=== PATIENT | male | born 1955 | race Caucasian/White ===

== ENCOUNTER 2022-03-28 13:59 | Inpatient (IN) | payer OTHER, BC, MEDICARE, SELFPAY ==
[2022-03-28] VITALS (11 sets, daily range): BP systolic 96–138; BP diastolic 54–85; PULSE 56–94; RESP 16–18; TEMP 36.2–37; O2SAT 95–100; BMI 37.8
--- NOTE | 2022-03-28 | HIP_PTH ---
PATIENT: TIFFANY HERZOG LOC: MS3 U#:[id number] AGE/SX: 66/M ROOM: MN311 RE03/28/[address]: Dr. Maverick Dash MD : 1955 BED: 1 DIS: 04/01/2022 SPEC #: [id number] RECD: 03/28/22 14:49 STATUS: SHELBY RAMIREZ #: [id number] PEE: 03/28/22 00:[address]: Maverick Dash DEPT: SURGICAL PATHOLOGY RECD BY: Dariela Painting ENTERED: 03/29/22 16:45 SP TYPE: TOTAL HIP OTHR DR: MD Dr. Shivani Chan MD Dr. Robert Leininger, MD Tissues: Hip, NOS Procedures: Surgery Specimen Level IV HEADER OPERATION: ERAS, total anterior hip poly exchange I & D PRE-OP DIAGNOSIS: Left anterior hip wound dehiscence/draining sinus TISSUE SUBMITTED: Sinus tract left hip MICROSCOPIC DIAGNOSIS Skin and soft tissue of left anterior hip, excision: Ulceration with associated acute and chronic inflammation, microabscess formation, fat necrosis and suture material. HADLEY:michael 04/02/2022 MICROSCOPIC DESCRIPTION Slides are reviewed. GROSS DESCRIPTION Received in fixative is one container labeled with the patient's name and designated sinus tract left hip. The specimen consists of skin and soft tissue measuring 5.5 x 4.5 x 2.2 cm. The specimen is sectioned and submitted entirely in two cassettes. / DAYNE:michael 03/30/2022 TC:2 CPT: 72748
[2022-03-28] MEDS: Lactated Ringers 1,000 ML 999 ML IV (10:30)
[2022-03-28] MEDS: Gabapentin 600 MG Tablet PO (10:55)
[2022-03-28] MEDS: Acetaminophen 500 MG Tablet 1000 MG PO ×2 (10:55→22:12)
[2022-03-28 10:59] LABS: Magnesium 2.1 mg/dL (1.6-2.6); Thyroid Stim Hormone (TSH) 2.22 uIU/mL (0.358-3.74)
[2022-03-28 11:16] LABS: Bedside Glucose 115 mg/dL (74-106)
[2022-03-28] MEDS: Lactated Ringers 1,000 ML 75 ML IV ×2 (11:31→12:30)
[2022-03-28] MEDS: dexAMETHasone 10 MG/ML Vial IV (12:10)
[2022-03-28] MEDS: Cefazolin 2 GM in 0.9% Normal Saline 100 ML IV (12:10)
[2022-03-28] MEDS: TXA 1000mg in NS100 100ml (IVPB at Incision) 660 MG IV (12:15)
[2022-03-28] MEDS: TXA 1000mg in NS100 100ml (IVPB at Closure) 660 MG IV (13:43)
--- NOTE | 2022-03-28 14:01 | RAD_ITS ---
STUDY: X-RAY - PELVIS AND LEFT HIP REASON FOR EXAM: Female, 66 years old. Post Op -- AP both hips on single gera/lateral of op hip PACU TECHNIQUE: views of the pelvis and hip. COMPARISON: None. FINDINGS: Status post surgical resection of the left femoral head and neck. The proximal one third femoral prosthetic component is well placed within the intramedullary cavity as well as the acetabular cup. Both prosthetic components demonstrate good bony contact and alignment. Expected postoperative changes of the overlying soft tissues including gas and swelling. No occult fractures present. The visualized aspects of the right hip are normal. RAD/Hip Min 2 Views (Portable) IMPRESSION: 1. Status post total left hip arthroplasty Electronically Signed: Zana Bourne MD at 15:47 EST ,
--- NOTE | 2022-03-28 14:04 | PCM.OPRPT ---
Report of Operation Date of Procedure: 03/28/22 Pre-Operative Diagnosis: Left anterior hip wound dehiscence/draining sinus Post-Operative Diagnosis: Left anterior hip wound dehiscence/draining sinus Surgery/Procedure Performed:: Left hip anterior wound irrigation debridement with excision of sinus tract 10 mm x 3 mm. Total hip exploration with revision polyethylene exchange and head exchange. Description of Surgical Findings:: There was no direct communication with the underlying joint. There was a small area of fluid with in the subcutaneous area superficial to the fascia. Surgeon: Maverick Dash construction worker: Elaine Harden Type of Anesthesia: Spinal Anesthesiologist: Bi Reyes Special Medications: Ancef and vancomycin Specimen's removed: Superficial specimen was sent. 3 deep specimens were sent. Estimated Blood Loss (mL): 200 Fluids Replaced: 1400 mL crystalloid Description of Procedure: 66-year-old male who showed up to my office at 6-week postop visit. 48 hours of a small amount of drainage from a small area on the incision where his scab had fallen off. The wound did have purulent drainage. This was expressed skin was cleaned and we did send cultures to [facility]. Initial Gram stains showed gram-positive cocci. Based on his clinical history of increasing swelling and redness in this area I recommended irrigation debridement with exploration of the joint and exchange of head and liner. Risk and benefits of the procedure were discussed the patient including but onto blood loss, DVTs, PEs, nervous damage, infection, the risk of anesthesia include loss of life. I was able to speak with the patient's at bedside prior to the procedure and demonstrated this as well. I do explained it could be superficial infection related to the leg wound dehiscence or topical wound issues however based on his purulent drainage I recommended deep exploration as part of the procedure. Patient demonstrated understanding as did his and was able to sign informed consent. On day of the procedure patient was seen in the preoperative area. Left hip was marked. At this point he had had no more purulent drainage and doxycycline had begun in the office. He was having some occasional serous drainage. He was brought back to the operating room where he was placed in supine position. Anesthesia assumed control of the C-spine and airway and remained to control throughout the remainder the procedure. Spinal anesthesia was was administered patient was again placed in the supine position and all bony prominences were identified well-padded. Sacral bump was placed. Incision was marked out. At this time the left lower extremity was prepped in a sterile fashion while surgeon scrubbed. Upon reentering the room the left lower extremity was draped in a standard orthopedic fashion. Timeout was called over and agreed upon the side, the site, the procedure to be performed, patient's identity and antibiotics given. There were 2 separate sepsis arranged 1 for the superficial debridement 1 for the deep exploration. After the timeout the incision was taken down through skin and we did ellipse the 10 mm x 3 mm sinus tract. This could be tracked down to a deep space that had some serous fluid. No gross purulence was noted however there was some tissue that looked purulent. This tissue was collected and sent for tissue cultures. We debrided this tissue. We were not able to find any deep tracking in the fascia. We carefully cleaned out this area and after was cleaned out we used 3 L of saline under low-pressure lavage to irrigate out the area once this area was appropriately on the gloves were removed and everyone regowned and gloved. We did redraped the area covering up the previous drapes. New accessory instruments were opened. At this time we carefully identified the fascia. We found the T FL and retracted it laterally dissecting underneath the fascia. We carefully dissected down to the joint. Once we are down to the joint 3 separate specimens were sent to microbiology. Once we have her get to the joint we carefully get her synovectomy. We are able to dislocate the hip. Once he dislocated hip we dissociated femoral head from the trunnion. The femur was then retracted out of the way and we were able to remove the acetabular liner. Acetabular liner was removed and one of the specimens was taken from memory behind the acetabular liner. Wound was millie irrigated out with normal saline under low-pressure lavage with 6 L of total normal saline. Once this was done the hip would been stable. We opened up a new liner. While we are opening the liner lavaged out the wound with Betadine and then carefully irrigated out once more. Liner was engaged and impacted into place. Hemostat was used to verify the liner was appropriate locking to place. Femoral trunnion was again exposed and the titanium sleeve and ceramic femoral head were impacted into place. Hip was reduced. Stability was checked. Leg lengths were reaffirmed. At this time the wound was then lavaged with a 3-minute dilute Betadine lavage followed by 1 minute chlorhexidine lavage followed by copious amounts of normal saline. Wound was in explored and hemostasis was obtained. We carefully closed the wound in a layered del valle fashion. #1 Vicryl was used to close the fascia. #1 Vicryl was used to close the deep fatty layer in interrupted fashion. 2-0 Vicryl was used to close the subcuticular layer and 3-0 nylon was used to close skin finally. Adaptic was placed on the skin and an incisional wound VAC was placed in the operating room. Patient was awakened by anesthesia and transferred the PACU for recovery. Postop plan: Patient will be weightbearing as tolerated, activity as tolerated. We will maintain the wound VAC for 1 week postoperatively. Patient will be started on cefazolin and vancomycin postoperatively and infectious disease will be consulted for further antibiotic recommendations. Aspirin 81 mg twice daily for DVT prophylaxis. During the course of the procedure the physician hvac commercial salesperson (PE) played a vital role. Their intimate knowledge of my steps in the procedure aided in safe and expedient completion of the procedure. The PE played a vital rolls in positioning particularly in obtaining the appropriate positioning of the sacral bump. The PE was also vital in the retraction of soft tissues during the exposure and especially the femoral work as this is a vital part of the procedure to prevent complications and fractures. The PE was also vital and protecting soft tissues during times of bony cuts and reaming. He also played a vital role in closure with my direct supervision. The PE was also important during reduction and dislocation of the joint and trials intraoperatively. Complications No intraoperative complications Admit VTE Documentation VTE Present on Admission: No VTE Mechan Device Prophylaxis: SCD's and Thigh High DOROTEO Hose VTE Pharm Prophylaxis ordered?: Yes
[2022-03-28] MEDS: Morphine 2 MG/ML Syringe IV (15:41)
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
[2022-03-28 17:38] LABS: Anion Gap 5 (5-15); BUN 26 mg/dL (7-18); BUN/Creat Ratio 19.1 RATIO (10-20); Calcium,Total 9.4 mg/dL (8.5-10.1); Chloride 102 mmol/L (98-107); Creatinine, Serum 1.36 mg/dL (0.70-1.30); EST Glomerular Filtration Rate 56 mL/min (>60); Est Glom Filt Rate - Afr Amer 67 mL/min (>60); Glucose 194 mg/dL (74-106); Potassium 4.5 mmol/L (3.5-5.1); Sodium Level 135 mmol/L (136-145)
[2022-03-28] MEDS: Ensure Surgery 237 ML LIQUID PO (18:36)
--- NOTE | 2022-03-28 19:07 | PN.HOSP_ITS ---
Subjective Subjective Patient was seen and examined today at the request of orthopedic surgery, he underwent a polyexchange of his left hip due to an infection which is believed to be from staff, patient states that this weekend he noticed swelling and discomfort in the left hip-patient states he had surgery several weeks ago for hip replacement-he was seen for a postop checkup by his orthopedic surgeon on Saturday of this week, it was noted that he had purulent drainage from his incision area over his left hip, this drainage grew out gram-positive cocci believed to be staph. Patient underwent surgery today for a left hip anterior wound irrigation debridement with excision of the sinus track and a total hip exploration with revision polyethylene exchange and head exchange. Patient's medical problems include hypothyroidism due to Meghna's thyroiditis, patient also has an elevated glucose on his last lab work of 194, creatinine was elevated at 1.36 and BUN was 26. Patient is on no medications for type 2 diabetes. It appears that the patient had an appointment with Mauri Barcenas in November of this year, there was a note about an A1c being ordered on the patient but there is no A1c in the system currently. I will order hemoglobin A1c in the patient Objective Data Objective Data Vital Signs: Vital Signs Temp Pulse Resp BP Pulse Ox O2 Del Method O2 Flow Rate 98.6 F 76 18 132/80 H 95 Room Air 4 03/28/22 17:33 03/28/22 17:33 03/28/22 17:33 03/28/22 17:33 03/28/22 17:33 03/28/22 17:33 03/28/22 17:00 Oxygen Flow Rate (L/min) 4 Oxygen Delivery Method Room Air Weight: 141 kg Body Mass Index (BMI) 37.8 Intake & Output: Intake and Output for Last 24 Hours 03/26/22 03/27/22 03/28/22 23:59 23:59 23:59 Intake Total 2972 / 2972 Balance 2972 / 2972 Lab / Micro Data Result Diagrams: 03/28/22 16:34 Labs: Laboratory Results - last 24 hr 03/28/22 10:18: Magnesium 2.1, TSH 2.22 03/28/22 10:41: POC Glucose 115 H 03/28/22 16:34: Sodium 135 L, Potassium 4.5, Chloride 102, Carbon Dioxide 28.0, Anion Gap 5, BUN 26 H, Creatinine 1.36 H, Estim Creat Clear Calc 65.60, Est GFR (MDRD) Af Amer 67, Est GFR (MDRD) Non-Af 56 L, BUN/Creatinine Ratio 19.1, Glucose 194 H, Calcium 9.4 Micro: Microbiology 03/28/22 13:08 Tissue - Hip Gram Stain - Final 03/28/22 13:19 Tissue - Hip Gram Stain - Final 03/28/22 13:13 Tissue - Hip Gram Stain - Final 03/28/22 13:10 Tissue - Hip Gram Stain - Final Radiography Diagnostic Testing: Radiology Impression Hip X-Ray 03/28/22 14:01 IMPRESSION: 1. Status post total left hip arthroplasty Electronically Signed: Zana Bourne MD at 15:47 EST Reading Location ID and State: [facility] / [place] , Service support , Physical Exam Const alert, oriented x3, no apparent distress and healthy appearing General Appearance: cooperative, well kempt and well developed Orientation / Consciousness: awake, oriented to person, oriented to place and oriented to time HEENT normocephalic, head/scalp atraumatic and moist oral mucous membranes Eyes PERRL, EOMs intact bilaterally and conjunctivae normal Neck supple, no JVD, thyroid normal and no carotid bruits General: trachea midline Resp normal respiratory effort, no retractions, no use of accessory muscles and clear to auscultation bilaterally Auscultation: Negative for rales, rhonchi or wheezes Cardio regular rate, regular rhythm, S1 normal heart sound, S2 normal heart sound, no murmurs, no rub and no gallops GI normal to inspection, nondistended, normoactive bowel sounds, soft to palpation, non-tender and non-distended Extremity no clubbing, cyanosis or edema Neuro oriented x3, CN's II-XII intact bilaterally, moves all extremities, no focal motor deficits and no sensory deficits noted Sensorium / Orientation: awake and alert Speech: speech normal Psych affect normal Assessment & Plan Assessment/Plan (1) 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 Hypothyroidism-patient will remain on Synthroid #2 elevated blood glucose-fingerstick blood sugars will be checked AC nightly, sliding scale insulin will be written #3 left anterior hip wound with dehiscence and draining sinus-postop day 0 left hip anterior wound irrigation debridement with excision of sinus tract and total hip exploration with revision polyethylene exchange and head exchange Charges/Coding Visit Charges Inpatient E&M: 60451 Subs Hosp L2
[2022-03-28] MEDS: Cefazolin 1 GM/50 ML BAG IV (19:49)
--- NOTE | 2022-03-28 19:59 | NURSING ---
pt was in room dropped vac via on floor by mistake. machine alarming, tried placing more drap on dressing to see if it would clear the alarm didnt work. when squeeze together would stop alarm. a rattle was heard. a new vac via was brought up by BRANDEN. machine was replaced. existing dressing and tubing still intact. no alarm heard. charge sticker for vac via given to BRANDEN Vasquez RN
--- NOTE | 2022-03-28 20:12 | PCM.RX.CS ---
Consult Pharmacy has been consulted to manage selected antiobiotic: Vancomycin Type of Consult: New start Suspected Infection: Skin/Soft tissue Prior Doses of Antibiotics Received/Current Regimen: Received 2gm iv x 1 preop 03.28.22. Labs: Sodium 135 mmol/L (136-145) L 03/28/22 16:34 Potassium 4.5 mmol/L (3.5-5.1) 03/28/22 16:34 Chloride 102 mmol/L (98-107) 03/28/22 16:34 Carbon Dioxide 28.0 mmol/L (21.0-32.0) 03/28/22 16:34 Anion Gap 5 (5-15) 03/28/22 16:34 BUN 26 mg/dL (7-18) H 03/28/22 16:34 Creatinine 1.36 mg/dL (0.70-1.30) H 03/28/22 16:34 Est GFR (MDRD) Af Amer 67 mL/min (>60) 03/28/22 16:34 Est GFR (MDRD) Non-Af 56 mL/min (>60) L 03/28/22 16:34 BUN/Creatinine Ratio 19.1 RATIO (10-20) 03/28/22 16:34 Glucose 194 mg/dL (74-106) H 03/28/22 16:34 Microbiology: Microbiology 03/28/22 13:08 Tissue - Hip Gram Stain - Final 03/28/22 13:19 Tissue - Hip Gram Stain - Final 03/28/22 13:13 Tissue - Hip Gram Stain - Final 03/28/22 13:10 Tissue - Hip Gram Stain - Final Weight used for dosin kg Estimated Creatinine Clearance: 66 ml/min Goal Trough: 15-20 mcg/mL Pharmacy Plan for Drug Dosing: Will begin 1500mg iv q12h starting 12 hrs post pre-op dose. Trough level ordered for 03.29.22 before 4th total dose. Pharmacy Service will continue to monitor and adjust dosing as required. Follow-Up Labs: Trough Vancomycin - 03.29.22 @2130 before 2200 dose
[2022-03-28] MEDS: Aspirin 81 MG TAB.CHEW PO (22:11)
[2022-03-28] MEDS: Senna/Docusate Sodium 1 Tablet 2 TABLET PO (22:12)
--- NOTE | 2022-03-28 22:32 | NURSING ---
Patient refused blood sugar check
[2022-03-29] MEDS: Ketorolac 15 MG/ML Vial IV (01:36)
[2022-03-29 02:30] VITALS: BP 119/63; PULSE 74; RESP 18; TEMP 36.3; O2SAT 95
[2022-03-29] MEDS: oxyCODONE 5 MG Tablet PO ×3 (03:56→23:29)
[2022-03-29] MEDS: Cefazolin 1 GM/50 ML BAG IV (03:57)
[2022-03-29] MEDS: Acetaminophen 500 MG Tablet 1000 MG PO ×3 (06:26→21:54)
[2022-03-29] MEDS: Levothyroxine 100 MCG Tablet PO (06:26)
[2022-03-29] MEDS: Morphine 4 MG/ML Syringe IV (06:27)
[2022-03-29] MEDS: BENZOCAINE/MENTHOL 1 LOZENGE MUCOUS MEM (06:28)
--- NOTE | 2022-03-29 06:35 | NURSING ---
Patient refused blood sugar test and insulin, stating he is not a diabetic and does not need it checked.
[2022-03-29 07:19] LABS: Hematocrit 37.1 % (40-54); Mean Corp Hgb Conc 32.3 g/dL (32-36); Mean Corpuscular Hgb 30.8 pg (27.0-32.0); Mean Corpuscular Volume 95.4 fL (80-94); Mean Platelet Vol. 9.6 fl (6.2-12.0); Platelet Count 206 K/mm3 (150-450); RBC Distribution Width CV 13.2 % (11.6-14.6); RBC Distribution Width SD 46.2 fl (35.1-43.9); Red Blood Count 3.89 M/mm3 (4.6-6.2); White Blood Count 12.7 K/mm3 (4.4-11.0)
[2022-03-29 07:29] LABS: Anion Gap 6 (5-15); BUN 29 mg/dL (7-18); BUN/Creat Ratio 21.3 RATIO (10-20); Calcium,Total 9.2 mg/dL (8.5-10.1); Chloride 104 mmol/L (98-107); Creatinine, Serum 1.36 mg/dL (0.70-1.30); EST Glomerular Filtration Rate 56 mL/min (>60); Est Glom Filt Rate - Afr Amer 67 mL/min (>60); Glucose 160 mg/dL (74-106); Sodium Level 138 mmol/L (136-145)
[2022-03-29 07:38] LABS: Hemoglobin A1c 5.8 % (3.8-5.6)
[2022-03-29 08:17] VITALS: BP 124/71; PULSE 77; RESP 16; TEMP 36.5; O2SAT 99
[2022-03-29] MEDS: Famotidine 20 MG Tablet PO (08:30)
[2022-03-29] MEDS: Ensure Surgery 237 ML LIQUID PO ×3 (08:30→15:36)
[2022-03-29] MEDS: Aspirin 81 MG TAB.CHEW PO ×2 (08:30→15:36)
[2022-03-29] MEDS: Senna/Docusate Sodium 1 Tablet 2 TABLET PO ×2 (08:30→21:55)
--- NOTE | 2022-03-29 09:15 | PCM.PN.ORT ---
Subjective Subjective 66-year-old male postop day 1 from left hip superficial irrigation debridement with sinus tract excision and exploration and polyethylene exchange left hip. Overall patient is doing well. Reports thigh discomfort at this time. Did receive some morphine overnight. No acute events reported overnight. Gram stains were all negative. Cultures from office still pending. Objective Data Objective Data Vital Signs: Vital Signs Temp Pulse Resp BP Pulse Ox O2 Del Method O2 Flow Rate 97.7 F L 77 16 124/71 H 99 Room Air 4 03/29/22 08:17 03/29/22 08:17 03/29/22 08:17 03/29/22 08:17 03/29/22 08:17 03/29/22 08:17 03/28/22 17:00 Oxygen Flow Rate (L/min) 4 Oxygen Delivery Method Room Air Weight: 310 lb 13.628 oz Body Mass Index (BMI) 37.8 Intake & Output: Intake and Output for Last 24 Hours 03/27/22 03/28/22 03/29/22 23:59 23:59 23:59 Intake Total 3022 / 3622 3180 / 3180 Output Total 1200 / 1200 Balance 3022 / 3122 1979 / 1979 Lab / Micro Data Attestation: I reviewed the patient's lab results. Result Diagrams: 03/29/22 06:45 03/29/22 06:45 Labs: Laboratory Results - last 24 hr 03/28/22 10:18: Magnesium 2.1, TSH 2.22 03/28/22 10:41: POC Glucose 115 H 03/28/22 16:34: Sodium 135 L, Potassium 4.5, Chloride 102, Carbon Dioxide 28.0, Anion Gap 5, BUN 26 H, Creatinine 1.36 H, Estim Creat Clear Calc 65.60, Est GFR (MDRD) Af Amer 67, Est GFR (MDRD) Non-Af 56 L, BUN/Creatinine Ratio 19.1, Glucose 194 H, Calcium 9.4 03/29/22 06:45: WBC 12.7 H, RBC 3.89 L, Hgb 12.0 L, Hct 37.1 L, MCV 95.4 H, MCH 30.8, MCHC 32.3, RDW Std Deviation 46.2 H, RDW Coeff of Zane 13.2, Plt Count 206, MPV 9.6 03/29/22 06:45: Sodium 138, Potassium 4.0, Chloride 104, Carbon Dioxide 28.0, Anion Gap 6, BUN 29 H, Creatinine 1.36 H, Estim Creat Clear Calc 65.60, Est GFR (MDRD) Af Amer 67, Est GFR (MDRD) Non-Af 56 L, BUN/Creatinine Ratio 21.3 H, Glucose 160 H, Calcium 9.2 03/29/22 06:45: Hemoglobin A1c 5.8 H Micro: Microbiology 03/28/22 13:08 Tissue - Hip Gram Stain - Final 03/28/22 13:19 Tissue - Hip Gram Stain - Final 03/28/22 13:13 Tissue - Hip Gram Stain - Final 03/28/22 13:10 Tissue - Hip Gram Stain - Final Radiography Diagnostic Testing: Radiology Impression Hip X-Ray 03/28/22 14:01 IMPRESSION: 1. Status post total left hip arthroplasty Electronically Signed: Zana Bourne MD at 15:47 EST Reading Location ID and State: [address] [place] [address] , Service support , Physical Exam Narrative Patient is up and walking the halls with physical therapy this morning. Const alert, oriented x3 and no apparent distress General Appearance: cooperative and lethargic Extremity Extremity Narrative: Left lower extremity: Dressing is clean dry and intact no fluid in tubes for wound VAC Sensations intact to light touch saphenous, sural, superficial peroneal, deep peroneal, and tibial distributions Motors intact EHL, DF, PF calves are soft and supple Assessment & Plan Assessment/Plan (1) Surgical site infection: PLAN: Postop day 1 irrigation debridement left superficial wound drainage, exploration deep surgical site with headliner exchange left hip 1. Continue physical therapy: Weightbearing as tolerated, activity as tolerated. Direct anterior hip precautions. Continue with therapy and OT. 2. DVT prophylaxis: Aspir 81 milligrams p.o. twice daily 3. Pain control: Continue current regimen Tylenol and oxycodone 4. Infection: Intraoperative findings more consistent with superficial infection the deep however infectious diseases consulted for medical management currently empiric management with cefazolin and vancomycin. Following cultures from outside institution which were performed in office as well as intraoperative cultures 5. Elevated BUN and creatinine: Stable from preoperative lab work. Mildly elevated. Patient may have some renal disease that is currently undiagnosed. Disposition: We will continue to follow cultures and await infectious disease recommendations for definitive antibiotic regimen [facility] Office: (2) Abnormal glucose: PLAN: Continue postoperative protocol.
[2022-03-29 11:07] VITALS: BP 119/77; PULSE 62; RESP 18; TEMP 36.5; O2SAT 99
--- NOTE | 2022-03-29 13:43 | PN.HOSP_ITS ---
Subjective Subjective Patient seen and examined. He complained of some pain in his left hip, at site of surgery. REview of systems otherwise negative. Objective Data Objective Data Vital Signs: Vital Signs Temp Pulse Resp BP Pulse Ox O2 Del Method O2 Flow Rate 97.7 F L 62 18 119/77 99 Room Air 4 03/29/22 11:07 03/29/22 11:07 03/29/22 11:07 03/29/22 11:07 03/29/22 11:07 03/29/22 11:07 03/28/22 17:00 Oxygen Flow Rate (L/min) 4 Oxygen Delivery Method Room Air Weight: 310 lb 13.628 oz Body Mass Index (BMI) 37.8 Intake & Output: Intake and Output for Last 24 Hours 03/27/22 03/28/22 03/29/22 23:59 23:59 23:59 Intake Total 3022 / 3622 3851.5 / 3851.5 Output Total 1925 / 1925 Balance 3022 / 3122 1926.5 / 1926.5 Lab / Micro Data Result Diagrams: 03/29/22 06:45 03/29/22 06:45 Labs: Laboratory Results - last 24 hr 03/28/22 16:34: Sodium 135 L, Potassium 4.5, Chloride 102, Carbon Dioxide 28.0, Anion Gap 5, BUN 26 H, Creatinine 1.36 H, Estim Creat Clear Calc 65.60, Est GFR (MDRD) Af Amer 67, Est GFR (MDRD) Non-Af 56 L, BUN/Creatinine Ratio 19.1, Glucose 194 H, Calcium 9.4 03/29/22 06:45: WBC 12.7 H, RBC 3.89 L, Hgb 12.0 L, Hct 37.1 L, MCV 95.4 H, MCH 30.8, MCHC 32.3, RDW Std Deviation 46.2 H, RDW Coeff of Zane 13.2, Plt Count 206, MPV 9.6 03/29/22 06:45: Sodium 138, Potassium 4.0, Chloride 104, Carbon Dioxide 28.0, Anion Gap 6, BUN 29 H, Creatinine 1.36 H, Estim Creat Clear Calc 65.60, Est GFR (MDRD) Af Amer 67, Est GFR (MDRD) Non-Af 56 L, BUN/Creatinine Ratio 21.3 H, Glucose 160 H, Calcium 9.2 03/29/22 06:45: Hemoglobin A1c 5.8 H Micro: Microbiology 03/28/22 10:18 Swab (Method) Nasal Screen MRSA/MSSA - Final 03/28/22 13:19 Tissue - Hip Gram Stain - Final 03/28/22 13:19 Tissue - Hip Wound Culture - Preliminary No growth-Final to follow 03/28/22 13:13 Tissue - Hip Gram Stain - Final 03/28/22 13:13 Tissue - Hip Wound Culture - Preliminary No growth-Final to follow 03/28/22 13:10 Tissue - Hip Gram Stain - Final 03/28/22 13:10 Tissue - Hip Wound Culture - Preliminary No growth-Final to follow 03/28/22 13:08 Tissue - Hip Gram Stain - Final 03/28/22 13:08 Tissue - Hip Wound Culture - Preliminary Staphylococcus aureus Radiography Diagnostic Testing: Radiology Impression Hip X-Ray 03/28/22 14:01 IMPRESSION: 1. Status post total left hip arthroplasty Electronically Signed: Zana Bourne MD at 15:47 EST Reading Location ID and State: [address] [place] [address] , Service support , Physical Exam Const alert, oriented x3 and no apparent distress HEENT head/scalp atraumatic, moist oral mucous membranes and oropharynx normal Head and Scalp: normocephalic Mouth: oral and palatal mucosa normal Eyes PERRL, EOMs intact bilaterally and conjunctivae normal Neck no lymphadenopathy and supple Resp normal respiratory effort, no retractions, no use of accessory muscles and clear to auscultation bilaterally Cardio regular rate, regular rhythm, S1 normal heart sound, S2 normal heart sound and no murmurs GI normal to inspection, nondistended, normoactive bowel sounds, soft to palpation, non-tender and non-distended Extremity normal to inspection, full ROM and no clubbing, cyanosis or edema Skin Skin Narrative: intact dressing over left hip, at site of surgery Neuro oriented x3, CN's II-XII intact bilaterally, moves all extremities and no focal motor deficits Sensorium / Orientation: awake and alert Motor Exam: strength 5/5 throughout Psych affect normal Assessment & Plan Assessment/Plan (1) Surgical site infection: PLAN: Plan #Left anterior hip post op wound dehiscence * s/p irrigation and debridement as well as excision of sinus tract, total hip exploration with revision polyethylene exchange and head exchange * managment as per orthopedics * ID on board * on IV vancomycin and cefazolin * #Hypothyroidism: on synthroid #ELevated Cr * Cr is 1.36. Was same yesterday. Baseline not known, though ID note states he has known CKD * will trend and monitor Cr * #Impaired glucose tolerance * blood glucose is 5.8. * will start on metformin. * ISS. Accuchecks ACHS * DVT prophylaxis: as per primary team; on aspirin 81mg bid * Charges/Coding Visit Charges Inpatient E&M: 32529 Subs Hosp L2
[2022-03-29 15:31] VITALS: BP 127/74; PULSE 68; RESP 18; TEMP 36.5; O2SAT 98
[2022-03-29 19:45] VITALS: BP 132/76; PULSE 70; RESP 16; TEMP 36.7; O2SAT 100
[2022-03-29 22:21] LABS: Vancomycin, Trough Level 16.6 ug/mL (5.0-15.0)
[2022-03-29] MEDS: 0.9% Saline Lock 10 ML Syringe IV (22:25)
--- NOTE | 2022-03-29 22:49 | PCM.RX.CS ---
Consult Pharmacy has been consulted to manage selected antiobiotic: Vancomycin Type of Consult: Follow-up Prior Doses of Antibiotics Received/Current Regimen: Medications Vancomycin HCl 1,500 mg/ (Sodium Chloride) 530 mls @ 250 mls/hr IV Q12H LESLY Last Admin: 03/29/22 22:25 Dose: 250 mls/hr Labs: Sodium 138 mmol/L (136-145) 03/29/22 06:45 Potassium 4.0 mmol/L (3.5-5.1) 03/29/22 06:45 Chloride 104 mmol/L (98-107) 03/29/22 06:45 Carbon Dioxide 28.0 mmol/L (21.0-32.0) 03/29/22 06:45 Anion Gap 6 (5-15) 03/29/22 06:45 BUN 29 mg/dL (7-18) H 03/29/22 06:45 Creatinine 1.36 mg/dL (0.70-1.30) H 03/29/22 06:45 Est GFR (MDRD) Af Amer 67 mL/min (>60) 03/29/22 06:45 Est GFR (MDRD) Non-Af 56 mL/min (>60) L 03/29/22 06:45 BUN/Creatinine Ratio 21.3 RATIO (10-20) H 03/29/22 06:45 Glucose 160 mg/dL (74-106) H 03/29/22 06:45 Vancomycin Trough 16.6 ug/mL (5.0-15.0) H 03/29/22 21:30 Microbiology: Microbiology 03/28/22 10:18 Swab (Method) Nasal Screen MRSA/MSSA - Final 03/28/22 13:19 Tissue - Hip Gram Stain - Final 03/28/22 13:19 Tissue - Hip Wound Culture - Preliminary No growth-Final to follow 03/28/22 13:13 Tissue - Hip Gram Stain - Final 03/28/22 13:13 Tissue - Hip Wound Culture - Preliminary No growth-Final to follow 03/28/22 13:10 Tissue - Hip Gram Stain - Final 03/28/22 13:10 Tissue - Hip Wound Culture - Preliminary No growth-Final to follow 03/28/22 13:08 Tissue - Hip Gram Stain - Final 03/28/22 13:08 Tissue - Hip Wound Culture - Preliminary Staphylococcus aureus Weight used for dosin kg Estimated Creatinine Clearance: 66 Goal Trough: 15-20 mcg/mL Pharmacy Plan for Drug Dosing: The vancomycin trough level that was drawn 11.5hrs post-dose came back at 16.6. This was within the target range of 15-20. Will continue same dosing and re-draw a trough in two days. Pharmacy Service will continue to monitor and adjust dosing as required. Follow-Up Labs: Trough Vancomycin Labs to be done on [date and time ordered]: 03/31/22 @5161
[2022-03-30 02:00] VITALS: BP 113/63; PULSE 61; RESP 16; TEMP 36.6; O2SAT 98
[2022-03-30] MEDS: Acetaminophen 500 MG Tablet 1000 MG PO ×3 (05:03→22:05)
[2022-03-30] MEDS: Levothyroxine 100 MCG Tablet PO (05:03)
[2022-03-30 06:17] LABS: Hematocrit 39.9 % (40-54); Hemoglobin 12.5 g/dL (13.0-16.5); Mean Corp Hgb Conc 31.3 g/dL (32-36); Mean Corpuscular Hgb 30.3 pg (27.0-32.0); Mean Corpuscular Volume 96.8 fL (80-94); Mean Platelet Vol. 9.7 fl (6.2-12.0); Platelet Count 225 K/mm3 (150-450); RBC Distribution Width CV 13.3 % (11.6-14.6); RBC Distribution Width SD 47.5 fl (35.1-43.9); Red Blood Count 4.12 M/mm3 (4.6-6.2); White Blood Count 8.3 K/mm3 (4.4-11.0)
[2022-03-30 06:49] LABS: Anion Gap 4 (5-15); BUN 25 mg/dL (7-18); BUN/Creat Ratio 18.5 RATIO (10-20); Calcium,Total 8.9 mg/dL (8.5-10.1); Chloride 105 mmol/L (98-107); Creatinine, Serum 1.35 mg/dL (0.70-1.30); EST Glomerular Filtration Rate 56 mL/min (>60); Est Glom Filt Rate - Afr Amer 68 mL/min (>60); Estimated Creatinine Clearance 66.08 ml/min; Glucose 106 mg/dL (74-106); Potassium 4.6 mmol/L (3.5-5.1); Sodium Level 137 mmol/L (136-145)
[2022-03-30] MEDS: Famotidine 20 MG Tablet PO (07:34)
[2022-03-30] MEDS: Senna/Docusate Sodium 1 Tablet 2 TABLET PO (07:34)
[2022-03-30] MEDS: Aspirin 81 MG TAB.CHEW PO ×2 (07:34→16:44)
[2022-03-30] MEDS: Ensure Surgery 237 ML LIQUID PO ×2 (07:34→12:10)
[2022-03-30 08:39] VITALS: BP 120/65; PULSE 71; RESP 18; TEMP 36.6; O2SAT 96
[2022-03-30 08:40] VITALS: BP 120/65; PULSE 71; RESP 18; TEMP 36.6; O2SAT 96
--- NOTE | 2022-03-30 09:42 | CASEMGMT ---
Addendum entered by Becky Mahan 03/30/22 15:28: TC to [facility] office, spoke with Cinthya, they are able to accept pt for SOC on Saturday morning. TC to , he will dc pt on Saturday. Green sheet on chart for instructions to fax dc instructions, time/date last IV atb and picc insertion info. Pt aware of the SOC and agency. Addendum entered by Becky Mahan 03/30/22 14:47: The following agencies have declined pt: [facility], [facility] and [facility]. TC to [facility], spoke with Jessica, pt is covered at 100%. Received tc back from [facility] who now states they are choosing not to take the referral. Referrals sent to [facility], [facility], [facility] and [facility]. Addendum entered by Becky Mahan 03/30/22 14:24: Received tc from [facility], they are unable to see pt until Saturday. Referral sent to [facility] who is unable to accept pt. Referral sent to [facility] and [facility]. TC to [facility], left vm. TC to [facility], office closed. TC to [facility], left message. TC to [facility], [facility], none of them service pt. Addendum entered by Becky Mahan 03/30/22 13:36: TC to [facility], referrals need to go through central intake. TC to central intake, left message and faxed referral. Addendum entered by Becky Mahan 03/30/22 12:09: Received tc back from [facility] supervisor cartography, Joya, they would be able to do Q8hour IV infusion if need be. Will await [facility] response and discuss with pt. Addendum entered by Becky Mahan 03/30/22 11:34: IRAIS MORENO in to pt room, pt has chosen [facility] for [facility] as first choice followed by [facility]. Referral sent via careport to [facility]. Addendum entered by Becky Mahan 03/30/22 11:29: Received rx for IV atb Q 8 hours. IRAIS MORENO into pt room, patient was provided a list of HHC providers including quality and resource use data and consistent with the patient?s preferred geographic region, medical needs, and insurance network were provided from the CarePort Guide. Pt to review and RN TIFFANIE to check back. Provided pt with a verbal list of local Infusion companies, pt chose [facility]. Referral sent to [facility] via careport at this time. Pt to get picc line today and plan to dc tomorrow. Addendum entered by Becky Mahan 03/30/22 10:49: Spoke with who states that pt may dc today pending ID. He has ordered picc. TC to [facility], spoke with nursing supervisor cartography, states they may be able to get pt set up for outpt IV infusion to start tomorrow depending on the frequency of the drug. Will touch base with Joya after ID rounds. Original Note: IRAIS MORENO Assessment: Face to Face with pt for initial transition planning/care coordination assessment. IRAIS MORENO introduced self and role at [facility], pt voices understanding and consents to assessment. Pt is A/O x4 and answers all questions appropriately at this time. Pt sitting up in chair in no distress. Care providers, pharmacy, and demographics verified/updated. Admitting Dx: Left anterior hip wound dehiscence/draining sinus PCP:K[facility] Specialists:wendie Dash; jaquelin Barcenas Preferred Pharmacy: [facility] [place] Insurance: [employer] Prescription Benefit: yes LW/HPOA: Pt denies having a LW/DPOA and denies need for info regarding AD. LNOK: Balbina Butts, Living Arrangements: Pt lives with and 6 year old son in a two story house with 2 steps to enter without a rail. Pt reports he was I in ADL's and denies concerns at home. Transportation: Pt states his is able to transport him to medical appts until he can drive. He states there is also a shuttle to [facility] he can call if needed. DME/HHC/SNF: Pt has a FWW, cane, polar care and CPAP at home. Pt denies hx of HHC or SNF stays. Pt states no concerns with going home at time of dc. Pt has been to [facility] for PT and states he has cancelled his appts for next week but can call and was told they can get him back on the schedule quickly when he is ready to begin again. Discussed with pt the possibility of needing IV atb. Pt states he would be willing to do the atb at home and his dil is a nurse. He also states he is 7 miles from [facility] and would be willing to go there depending of the frequency of IV atb. Will await ID recommendations. Pt states no further concerns/needs. CM to follow. Advised pt to ask CM if any further question/concerns/needs arise, voices understanding. Pt Goal: Home Plan: Home with HHC vs outpt therapy, follow for IV atb.
--- NOTE | 2022-03-30 10:17 | PN.ORTHO_ITS ---
Objective Data Objective Data Vital Signs: Vital Signs Temp Pulse Resp BP Pulse Ox O2 Del Method O2 Flow Rate 97.8 F 71 18 120/65 96 Room Air 4 03/30/22 08:40 03/30/22 08:40 03/30/22 08:40 03/30/22 08:40 03/30/22 08:40 03/30/22 08:40 03/30/22 02:00 Oxygen Flow Rate (L/min) 4 Oxygen Delivery Method Room Air Weight: 310 lb 13.628 oz Body Mass Index (BMI) 37.8 Intake & Output: Intake and Output for Last 24 Hours 03/28/22 03/29/22 03/30/22 23:59 23:59 23:59 Intake Total 3022 / 3622 3851.5 / 3851.5 530 / 530 Output Total 3925 / 3925 575 / 575 Balance 3022 / 3122 -73.5 / -73.5 -45 / -45 Lab / Micro Data Result Diagrams: 03/30/22 05:38 03/30/22 05:38 Labs: Laboratory Results - last 24 hr 03/29/22 21:30: Vancomycin Trough 16.6 H 03/30/22 05:38: WBC 8.3, RBC 4.12 L, Hgb 12.5 L, Hct 39.9 L, MCV 96.8 H, MCH 30.3, MCHC 31.3 L, RDW Std Deviation 47.5 H, RDW Coeff of Zane 13.3, Plt Count 225, MPV 9.7 03/30/22 05:38: Sodium 137, Potassium 4.6, Chloride 105, Carbon Dioxide 28.0, Anion Gap 4 L, BUN 25 H, Creatinine 1.35 H, Estim Creat Clear Calc 66.08, Est GFR (MDRD) Af Amer 68, Est GFR (MDRD) Non-Af 56 L, BUN/Creatinine Ratio 18.5, Glucose 106, Calcium 8.9 Micro: Microbiology 03/28/22 13:13 Tissue - Hip Gram Stain - Final 03/28/22 13:13 Tissue - Hip Wound Culture - Preliminary Staphylococcus aureus 03/28/22 13:13 Tissue - Hip Anaerobic Culture - Preliminary No growth in 48 hours. 03/28/22 13:19 Tissue - Hip Gram Stain - Final 03/28/22 13:19 Tissue - Hip Wound Culture - Final No growth aerobically. 03/28/22 13:19 Tissue - Hip Anaerobic Culture - Preliminary No growth in 48 hours. 03/28/22 13:08 Tissue - Hip Gram Stain - Final 03/28/22 13:08 Tissue - Hip Wound Culture - Final Staphylococcus aureus 03/28/22 13:10 Tissue - Hip Gram Stain - Final 03/28/22 13:10 Tissue - Hip Wound Culture - Preliminary No growth-Final to follow 03/28/22 13:10 Tissue - Hip Anaerobic Culture - Preliminary No growth in 48 hours. 03/28/22 10:18 Swab (Method) Nasal Screen MRSA/MSSA - Final Assessment & Plan Assessment/Plan (1) Surgical site infection: PLAN: Postop day 2 irrigation debridement left superficial wound drainage, exploration deep surgical site with headliner exchange left hip 1. Continue physical therapy: Weightbearing as tolerated, activity as tolerated. Direct anterior hip precautions. Continue with therapy and OT. 2. DVT prophylaxis: Aspir 81 milligrams p.o. twice daily 3. Pain control: Continue current regimen Tylenol and oxycodone. Patient notes oxycodone side effects are unwanted states he plans to minimize narcotics moving forward. 4. Leukocytosis: Resolved today. Likely result of response to operative intervention and infection 5. Infection: Superficial culture consistent with MSSA. 1 out of 3 deep culture and liquid medium only also consistent with staph aureus. We will await final antibiotic regimen. Discussed with social work today if we can finalize antibiotic regimen today he can likely go home tomorrow. 6. Elevated BUN and creatinine: Stable from yesterday's lab work. Mildly elevated. Patient may have some renal disease that is currently undiagnosed. Disposition: Cultures are back today. I have ordered a PICC line. If we can finalize antibiotic regimen today patient should be medically stable to be discharged home tomorrow. [facility] Office: (2) Abnormal glucose: PLAN: Continue postoperative protocol.
--- NOTE | 2022-03-30 11:23 | PN.ID_ITS ---
Physical Exam Narrative Feeling ok, pain controlled, no fever, no n/v/d. Const alert and no apparent distress Resp normal air movement and clear to auscultation bilaterally Cardio regular rate and regular rhythm GI soft to palpation, non-tender and non-distended Skin Skin Narrative: L hip bandaged ID ID: Route of nutrition/ use of supplements: [] Nutritional Intake: [] IV Site: [] Larry Catheter: [] Assessment & Plan Assessment/Plan (1) Surgical site infection: PLAN: L hip PJI. [facility] wound cx 03/26/22 with MSSA, started on po doxy that day. Now s/p 03/28/22 excision of sinus tract, poly exchange by Dr. Dash. Fascia was intact. Surg cxs with MSSA. Picc pending. Will order 6 weeks iv cefazolin, stop date 05/09/22, and po rifampin. Counseled him re: potential side effects. Will follow weekly bmp, cbc, LFT, and esr. Plan on [facility] po abx once iv course is complete. ID followup in 2 weeks. Will follow. D/w Dr. Dash and nursing. (2) Left hip prosthetic joint infection:
[2022-03-30 11:29] LABS: AST(SGOT) 28 U/L (15-37); Alanine Aminotransfer ALT/SGPT 22 U/L (16-61); Albumin, Serum 2.8 g/dL (3.2-5.0); Alkaline Phosphatase 73 U/L (45-117); Bilirubin, Direct < 0.05 mg/dL (0.00-0.30); Globulin 3.7 g/dL (2.2-4.2); Protein, Total 6.5 g/dL (6.4-8.2)
--- NOTE | 2022-03-30 12:23 | PN.HOSP_ITS ---
Subjective Subjective Patient seen and examined. He has no active complaints today and had an uneventful night. Review of systems is otherwise negative. Objective Data Objective Data Vital Signs: Vital Signs Temp Pulse Resp BP Pulse Ox O2 Del Method O2 Flow Rate 97.8 F 71 18 120/65 96 Room Air 4 03/30/22 08:40 03/30/22 08:40 03/30/22 08:40 03/30/22 08:40 03/30/22 08:40 03/30/22 08:40 03/30/22 02:00 Oxygen Flow Rate (L/min) 4 Oxygen Delivery Method Room Air Weight: 310 lb 13.628 oz Body Mass Index (BMI) 37.8 Intake & Output: Intake and Output for Last 24 Hours 03/28/22 03/29/22 03/30/22 23:59 23:59 23:59 Intake Total 3022 / 3622 3851.5 / 3851.5 530 / 530 Output Total 3925 / 3925 575 / 575 Balance 3022 / 3122 -73.5 / -73.5 -45 / -45 Lab / Micro Data Result Diagrams: 03/30/22 05:38 03/30/22 05:38 Labs: Laboratory Results - last 24 hr 03/29/22 21:30: Vancomycin Trough 16.6 H 03/30/22 05:38: WBC 8.3, RBC 4.12 L, Hgb 12.5 L, Hct 39.9 L, MCV 96.8 H, MCH 30.3, MCHC 31.3 L, RDW Std Deviation 47.5 H, RDW Coeff of Zane 13.3, Plt Count 225, MPV 9.7 03/30/22 05:38: Sodium 137, Potassium 4.6, Chloride 105, Carbon Dioxide 28.0, Anion Gap 4 L, BUN 25 H, Creatinine 1.35 H, Estim Creat Clear Calc 66.08, Est GFR (MDRD) Af Amer 68, Est GFR (MDRD) Non-Af 56 L, BUN/Creatinine Ratio 18.5, Glucose 106, Calcium 8.9 03/30/22 05:38: Total Bilirubin 0.40, Direct Bilirubin < 0.05, AST 28, ALT 22, Alkaline Phosphatase 73, Total Protein 6.5, Albumin 2.8 L, Globulin 3.7 Micro: Microbiology 03/28/22 13:10 Tissue - Hip Gram Stain - Final 03/28/22 13:10 Tissue - Hip Wound Culture - Preliminary Gram positive organism 03/28/22 13:10 Tissue - Hip Anaerobic Culture - Preliminary No growth in 48 hours. 03/28/22 13:13 Tissue - Hip Gram Stain - Final 03/28/22 13:13 Tissue - Hip Wound Culture - Preliminary Staphylococcus aureus 03/28/22 13:13 Tissue - Hip Anaerobic Culture - Preliminary No growth in 48 hours. 03/28/22 13:19 Tissue - Hip Gram Stain - Final 03/28/22 13:19 Tissue - Hip Wound Culture - Final No growth aerobically. 03/28/22 13:19 Tissue - Hip Anaerobic Culture - Preliminary No growth in 48 hours. 03/28/22 13:08 Tissue - Hip Gram Stain - Final 03/28/22 13:08 Tissue - Hip Wound Culture - Final Staphylococcus aureus 03/28/22 10:18 Swab (Method) Nasal Screen MRSA/MSSA - Final Physical Exam Const alert, oriented x3, no apparent distress and healthy appearing General Appearance: cooperative, well kempt and well developed Orientation / Consciousness: awake, oriented to person, oriented to place and oriented to time HEENT normocephalic, head/scalp atraumatic, moist oral mucous membranes and oropharynx normal Head and Scalp: normocephalic Eyes PERRL, EOMs intact bilaterally and conjunctivae normal Neck no lymphadenopathy, supple, no JVD, thyroid normal and no carotid bruits General: trachea midline Resp normal respiratory effort, no retractions, no use of accessory muscles and clear to auscultation bilaterally Auscultation: Negative for rales, rhonchi or wheezes Cardio regular rate, regular rhythm, S1 normal heart sound, S2 normal heart sound, no murmurs, no rub and no gallops GI normal to inspection, nondistended, normoactive bowel sounds, soft to palpation, non-tender and non-distended Extremity normal to inspection, full ROM and no clubbing, cyanosis or edema Skin Skin Narrative: intact dressing over left hip, at site of surgery Neuro oriented x3, CN's II-XII intact bilaterally, moves all extremities, no focal motor deficits and no sensory deficits noted Sensorium / Orientation: awake and alert Speech: speech normal Motor Exam: strength 5/5 throughout Psych affect normal Assessment & Plan Assessment/Plan (1) Surgical site infection: PLAN: Plan #Left anterior hip post op wound dehiscence * s/p irrigation and debridement as well as excision of sinus tract, total hip exploration with revision polyethylene exchange and head exchange * managment as per orthopedics * ID on board * on IV vancomycin and cefazolin * #Hypothyroidism: on synthroid #CKD 3B * Cr is 1.35 today. * will trend and monitor Cr * #Impaired glucose tolerance * blood glucose is 5.8. * will start on metformin. * ISS. Accuchecks ACHS * DVT prophylaxis: as per primary team; on aspirin 81mg bid * Charges/Coding Visit Charges Inpatient E&M: 73150 Subs Hosp L2
[2022-03-30] MEDS: Meloxicam 7.5 MG Tablet PO ×2 (13:11→22:08)
[2022-03-30 14:01] VITALS: BP 138/67; PULSE 83; RESP 18; TEMP 36.6; O2SAT 95
[2022-03-30 14:08] VITALS: BP 138/67; PULSE 83; RESP 18; TEMP 36.6; O2SAT 95
[2022-03-30] MEDS: Cefazolin 2 GM in 0.9% Normal Saline 100 ML IV ×2 (18:09→22:04)
[2022-03-30 20:45] VITALS: BP 137/88; PULSE 79; RESP 16; TEMP 36.6; O2SAT 98
[2022-03-30] MEDS: rifAMPin 300 MG Capsule PO (22:06)
[2022-03-31] VITALS (7 sets, daily range): BP systolic 118–132; BP diastolic 67–76; PULSE 72–81; RESP 16; TEMP 36.4–36.8; O2SAT 98–100
[2022-03-31] MEDS: Cefazolin 2 GM in 0.9% Normal Saline 100 ML IV ×3 (05:14→22:09)
[2022-03-31] MEDS: Acetaminophen 500 MG Tablet 1000 MG PO ×3 (05:14→22:09)
[2022-03-31] MEDS: Levothyroxine 100 MCG Tablet PO (05:14)
[2022-03-31 07:18] LABS: Hematocrit 41.2 % (40-54); Hemoglobin 13.4 g/dL (13.0-16.5); Mean Corp Hgb Conc 32.5 g/dL (32-36); Mean Corpuscular Hgb 31.3 pg (27.0-32.0); Mean Corpuscular Volume 96.3 fL (80-94); Mean Platelet Vol. 9.4 fl (6.2-12.0); Platelet Count 242 K/mm3 (150-450); RBC Distribution Width CV 13.2 % (11.6-14.6); RBC Distribution Width SD 46.9 fl (35.1-43.9); Red Blood Count 4.28 M/mm3 (4.6-6.2); White Blood Count 8.5 K/mm3 (4.4-11.0)
[2022-03-31] MEDS: Ensure Surgery 237 ML LIQUID PO ×2 (08:26→16:40)
[2022-03-31] MEDS: Aspirin 81 MG TAB.CHEW PO ×2 (08:27→16:37)
[2022-03-31] MEDS: Meloxicam 7.5 MG Tablet PO ×2 (08:28→22:09)
[2022-03-31] MEDS: Famotidine 20 MG Tablet PO (08:29)
[2022-03-31] MEDS: rifAMPin 300 MG Capsule PO ×2 (08:29→22:09)
--- NOTE | 2022-03-31 08:36 | PCM.PN.ORT ---
Objective Data Objective Data Vital Signs: Vital Signs Temp Pulse Resp BP Pulse Ox O2 Del Method O2 Flow Rate 98.3 F 72 16 125/76 H 98 Room Air 4 03/31/22 05:00 03/31/22 05:00 03/31/22 05:00 03/31/22 05:00 03/31/22 05:00 03/31/22 05:00 03/30/22 02:00 Oxygen Flow Rate (L/min) 4 Oxygen Delivery Method Room Air Weight: 310 lb 13.628 oz Body Mass Index (BMI) 37.8 Intake & Output: Intake and Output for Last 24 Hours 03/29/22 03/30/22 03/31/22 23:59 23:59 23:59 Intake Total 3851.5 / 3851.5 1150 / 1150 818.5 / 818.5 Output Total 3925 / 3925 3600 / 3600 1450 / 1450 Balance -73.5 / -73.5 -2450 / -2450 -631.5 / -631.5 Lab / Micro Data Result Diagrams: 03/31/22 06:25 03/30/22 05:38 Labs: Laboratory Results - last 24 hr 03/30/22 05:38: Total Bilirubin 0.40, Direct Bilirubin < 0.05, AST 28, ALT 22, Alkaline Phosphatase 73, Total Protein 6.5, Albumin 2.8 L, Globulin 3.7 03/31/22 06:25: WBC 8.5, RBC 4.28 L, Hgb 13.4, Hct 41.2, MCV 96.3 H, MCH 31.3, MCHC 32.5, RDW Std Deviation 46.9 H, RDW Coeff of Zane 13.2, Plt Count 242, MPV 9.4 Micro: Microbiology 03/28/22 13:13 Tissue - Hip Gram Stain - Final 03/28/22 13:13 Tissue - Hip Wound Culture - Final Staphylococcus aureus 03/28/22 13:13 Tissue - Hip Anaerobic Culture - Preliminary No growth in 48 hours. 03/28/22 13:10 Tissue - Hip Gram Stain - Final 03/28/22 13:10 Tissue - Hip Wound Culture - Preliminary Gram positive organism 03/28/22 13:10 Tissue - Hip Anaerobic Culture - Preliminary No growth in 48 hours. 03/28/22 13:19 Tissue - Hip Gram Stain - Final 03/28/22 13:19 Tissue - Hip Wound Culture - Final No growth aerobically. 03/28/22 13:19 Tissue - Hip Anaerobic Culture - Preliminary No growth in 48 hours. 03/28/22 13:08 Tissue - Hip Gram Stain - Final 03/28/22 13:08 Tissue - Hip Wound Culture - Final Staphylococcus aureus 03/28/22 10:18 Swab (Method) Nasal Screen MRSA/MSSA - Final Assessment & Plan Assessment/Plan (1) Surgical site infection: PLAN: Postop day 3 irrigation debridement left superficial wound drainage, exploration deep surgical site with headliner exchange left hip 1. Continue physical therapy: Weightbearing as tolerated, activity as tolerated. Direct anterior hip precautions. Continue with therapy and OT, patient has been on full course of physical therapy would like to attempt home exercise program at this time. [place] and arranging home health care has been a challenge for IV antibiotics. We will reassess at 2-week visit to determine appropriateness of continued home exercise program versus home therapy. 2. DVT prophylaxis: Aspir 81 milligrams p.o. twice daily 3. Pain control: Continue current regimen Tylenol and oxycodone. Patient notes oxycodone side effects are unwanted states he plans to minimize narcotics moving forward. 4. Leukocytosis: Resolved today. Likely result of response to operative intervention and infection 5. Infection: Superficial culture consistent with MSSA. 2 out of 3 deep cultures now consistent with gram-positive organism and staph aureus. Patient's antibiotic regimen will consist of cefazolin 2 g every 8 hours IV with p.o. rifampin. We have been able to arrange home health care for the patient but will not be able to start until Saturday morning so patient will be discharged tomorrow after his final dose. 6. Elevated BUN and creatinine: Stable stable continue to follow as an outpatient. Disposition: Plan for discharge tomorrow with home health care for IV antibiotics. [facility] Office: (2) Abnormal glucose: PLAN: Continue postoperative protocol.
--- NOTE | 2022-03-31 10:42 | PN.HOSP_ITS ---
Subjective Subjective Patient seen and examined. He complains of a headache, which he says is because he couldnt sleep well. Review of systems is othewrwise negative. Objective Data Objective Data Vital Signs: Vital Signs Temp Pulse Resp BP Pulse Ox O2 Del Method O2 Flow Rate 97.5 F L 74 16 118/72 98 Room Air 4 03/31/22 08:33 03/31/22 08:33 03/31/22 08:33 03/31/22 08:33 03/31/22 08:33 03/31/22 08:33 03/30/22 02:00 Oxygen Flow Rate (L/min) 4 Oxygen Delivery Method Room Air Weight: 310 lb 13.628 oz Body Mass Index (BMI) 37.8 Intake & Output: Intake and Output for Last 24 Hours 03/29/22 03/30/22 03/31/22 23:59 23:59 23:59 Intake Total 3851.5 / 3851.5 1150 / 1150 848.75 / 848.75 Output Total 3925 / 3925 3600 / 3600 1450 / 1450 Balance -73.5 / -73.5 -2450 / -2450 -601.25 / -601.25 Lab / Micro Data Result Diagrams: 03/31/22 06:25 03/30/22 05:38 Labs: Laboratory Results - last 24 hr 03/30/22 05:38: Total Bilirubin 0.40, Direct Bilirubin < 0.05, AST 28, ALT 22, Alkaline Phosphatase 73, Total Protein 6.5, Albumin 2.8 L, Globulin 3.7 03/31/22 06:25: WBC 8.5, RBC 4.28 L, Hgb 13.4, Hct 41.2, MCV 96.3 H, MCH 31.3, MCHC 32.5, RDW Std Deviation 46.9 H, RDW Coeff of Zane 13.2, Plt Count 242, MPV 9.4 Micro: Microbiology 03/28/22 13:13 Tissue - Hip Gram Stain - Final 03/28/22 13:13 Tissue - Hip Wound Culture - Final Staphylococcus aureus 03/28/22 13:13 Tissue - Hip Anaerobic Culture - Preliminary No growth in 48 hours. 03/28/22 13:10 Tissue - Hip Gram Stain - Final 03/28/22 13:10 Tissue - Hip Wound Culture - Preliminary Gram positive organism 03/28/22 13:10 Tissue - Hip Anaerobic Culture - Preliminary No growth in 48 hours. 03/28/22 13:19 Tissue - Hip Gram Stain - Final 03/28/22 13:19 Tissue - Hip Wound Culture - Final No growth aerobically. 03/28/22 13:19 Tissue - Hip Anaerobic Culture - Preliminary No growth in 48 hours. 03/28/22 13:08 Tissue - Hip Gram Stain - Final 03/28/22 13:08 Tissue - Hip Wound Culture - Final Staphylococcus aureus 03/28/22 10:18 Swab (Method) Nasal Screen MRSA/MSSA - Final Physical Exam Const alert, oriented x3, no apparent distress and healthy appearing General Appearance: cooperative, well kempt and well developed Orientation / Consciousness: awake, oriented to person, oriented to place and oriented to time HEENT normocephalic, head/scalp atraumatic, moist oral mucous membranes and oropharynx normal Head and Scalp: normocephalic Mouth: oral and palatal mucosa normal Eyes PERRL, EOMs intact bilaterally and conjunctivae normal Neck no lymphadenopathy, supple, no JVD, thyroid normal and no carotid bruits General: trachea midline Resp normal respiratory effort, no retractions, no use of accessory muscles and clear to auscultation bilaterally Auscultation: Negative for rales, rhonchi or wheezes Cardio regular rate, regular rhythm, S1 normal heart sound, S2 normal heart sound, no murmurs, no rub and no gallops GI normal to inspection, nondistended, normoactive bowel sounds, soft to palpation, non-tender and non-distended Extremity normal to inspection, full ROM and no clubbing, cyanosis or edema Skin Skin Narrative: intact dressing over left hip, at site of surgery Neuro oriented x3, CN's II-XII intact bilaterally, moves all extremities, no focal motor deficits and no sensory deficits noted Sensorium / Orientation: awake and alert Speech: speech normal Motor Exam: strength 5/5 throughout Psych affect normal Assessment & Plan Assessment/Plan (1) Surgical site infection: PLAN: Plan #Left anterior hip post op wound dehiscence * s/p irrigation and debridement as well as excision of sinus tract, total hip exploration with revision polyethylene exchange and head exchange * wound cultures growing Staph aureus. * managment as per orthopedics * ID on board * on IV vancomycin and cefazolin * to be discharged on IV cefazolin 2gram q8 hours and PO rifampin. * #Hypothyroidism: on synthroid #CKD 3B * Cr is 1.35 today. * will trend and monitor Cr * #Impaired glucose tolerance * blood glucose is 5.8. * will start on metformin. * ISS. Accuchecks ACHS * DVT prophylaxis: as per primary team; on aspirin 81mg bid * Disposition: for dc home tomorrow with home health care, as per primary team. Home health unable to get to patient before Saturday, so will stay to receive his iV antibiotics over hte , then be discharged for home health to take over antibiotic administration from Saturday. Charges/Coding Visit Charges Inpatient E&M: 48986 Subs Hosp L2
[2022-03-31] MEDS: Ensure Plus High Protein 120 ML LIQUID PO (22:09)
[2022-04-01] VITALS (9 sets, daily range): BP systolic 118–139; BP diastolic 60–103; PULSE 71–84; RESP 16; TEMP 36.3–36.5; O2SAT 97–99
[2022-04-01] MEDS: Cefazolin 2 GM in 0.9% Normal Saline 100 ML IV ×3 (06:17→20:40)
[2022-04-01] MEDS: Acetaminophen 500 MG Tablet 1000 MG PO ×3 (06:18→20:41)
[2022-04-01] MEDS: Levothyroxine 100 MCG Tablet PO (06:18)
--- NOTE | 2022-04-01 07:29 | DS.PCM_ITS ---
Providers Date of Admission: 03/28/22 Primary Care Physician: Dr. Ivan Swanson MD Consultations 03/28/22 14:00 Consult: Hospitalist Routine Consulting Provider: Tam Honeycutt Reason for Consult: post op med management EMERGENT Consult: No Notified: Yes Date Notified: 03/28/22 Time Notified: 14:49 Method of Notification: Verbal 03/28/22 14:22 Consult: Infectious Disease Routine Consulting Provider: Donavan Rivas Reason for Consult: left usama wound infection, culture at [facility] EMERGENT Consult: No Notified: Yes Date Notified: 03/28/22 Time Notified: 15:42 Method of Notification: Verbal Diagnosis Discharge Diagnosis (1) Surgical site infection: Status: Acute Code(s): T81.49XA - Infection following a procedure, other surgical site, initial encounter Plan: Postop day 3 irrigation debridement left superficial wound drainage, exploration deep surgical site with headliner exchange left hip 1. Continue physical therapy: Weightbearing as tolerated, activity as tolerated. Direct anterior hip precautions. Continue with therapy and OT, patient has been on full course of physical therapy would like to attempt home exercise program at this time. [place] and arranging home health care has been a challenge for IV antibiotics. We will reassess at 2-week visit to determine appropriateness of continued home exercise program versus home therapy. 2. DVT prophylaxis: Aspir 81 milligrams p.o. twice daily 3. Pain control: Continue current regimen Tylenol and oxycodone. Patient notes oxycodone side effects are unwanted states he plans to minimize narcotics moving forward. 4. Leukocytosis: Resolved today. Likely result of response to operative intervention and infection 5. Infection: Superficial culture consistent with MSSA. 2 out of 3 deep cultures now consistent with gram-positive organism and staph aureus. Patient's antibiotic regimen will consist of cefazolin 2 g every 8 hours IV with p.o. rifampin. We have been able to arrange home health care for the patient but will not be able to start until Saturday morning so patient will be discharged tomorrow after his final dose. 6. Elevated BUN and creatinine: Stable stable continue to follow as an outpatient. Disposition: Plan for discharge today [facility] Office: Medications at Discharge Home Medications levothyroxine 100 mcg tablet 100 mcg PO DAILY #90 tabs 11/14/21 ibuprofen 600 mg tablet 600 mg PO Q6H PRN Fever 03/27/22 cefazolin 2 gram/100 mL in 0.9 % sodium chloride intravenous solution 100 ml IV Q8H 40 days #1,200 mL 03/30/22 rifampin 300 mg capsule 300 mg PO BID 40 days #80 caps 03/30/22 acetaminophen 500 mg tablet 1,000 mg PO Q8 #0 tabs 04/01/22 aspirin 81 mg chewable tablet 81 mg PO BIDCM #0 tabs 04/01/22 benzocaine 6 mg-menthol 10 mg lozenges (Chloraseptic Sore Throat) 1 janine mucous membrane Q2H PRN PRN SORE THROAT #0 ea 04/01/22 calcium carbonate 200 mg calcium (500 mg) chewable tablet 1,000 mg PO Q6H PRN PRN Indigestion #0 tabs 04/01/22 famotidine 20 mg tablet 20 mg PO DAILY 30 days #30 tabs 04/01/22 food supplemt, lactose-reduced 0.08 gram-1.5 kcal/mL oral liquid (Ensure Plus High Protein) 120 ml PO 4X/DAY #0 mL 04/01/22 meloxicam 7.5 mg tablet 7.5 mg PO BID 30 days #60 tabs 04/01/22 oxycodone 5 mg tablet 5 - 10 mg PO Q4H PRN PRN Pain Score 4-10 5 days #42 tabs 1 06/01/21 sennosides 8.6 mg-docusate sodium 50 mg tablet (Stool Softener-Stimulant Laxative) 2 tab PO BID 3 days #12 tabs 04/01/22 Hospital Course Operations total hip replacement Procedures PICC line placement Summary of Care Provided Hospital Course: Patient presented to my office at his 6-week visit with purulent drainage from his wound for a small area. He was brought to the operating room on 03/28/2022 where he was admitted postoperatively after a irrigation debridement and polyethylene/headliner exchange of the deep space. Found to have 2 out of 3 deep space cultures positive. Superficial space was positive for MSSA. Patient was seen and evaluated by infectious disease. After final cultures were proved patient was recommended to be on rifampin with cefazolin 3 times a day. Home health care was arranged and patient was ready for discharge once home health care could be adequately obtained. Home health care cannot start until 04/02 so he was discharged after his final dose on April 01. Physical Exam Const alert, oriented x3 and no apparent distress Extremity Extremity Narrative: Left lower extremity: Wound VAC dressing is clean dry and intact Sensations intact to light touch saphenous, sural, superficial peroneal, deep peroneal, and tibial distributions Motors intact EHL, DF, PF calves are soft and supple Weight / BMI Weight Weight: 310 lb 13.628 oz Body Mass Index (BMI) 37.8 ABG / Lab / Microbiology Data Result Diagrams: 03/31/22 06:25 03/30/22 05:38 Microbiology: Microbiology 03/28/22 13:13 Tissue - Hip Gram Stain - Final 03/28/22 13:13 Tissue - Hip Wound Culture - Final Staphylococcus aureus 03/28/22 13:13 Tissue - Hip Anaerobic Culture - Preliminary No growth in 48 hours. 03/28/22 13:10 Tissue - Hip Gram Stain - Final 03/28/22 13:10 Tissue - Hip Wound Culture - Preliminary Gram positive organism 03/28/22 13:10 Tissue - Hip Anaerobic Culture - Preliminary No growth in 48 hours. 03/28/22 13:19 Tissue - Hip Gram Stain - Final 03/28/22 13:19 Tissue - Hip Wound Culture - Final No growth aerobically. 03/28/22 13:19 Tissue - Hip Anaerobic Culture - Preliminary No growth in 48 hours. 03/28/22 13:08 Tissue - Hip Gram Stain - Final 03/28/22 13:08 Tissue - Hip Wound Culture - Final Staphylococcus aureus 03/28/22 10:18 Swab (Method) Nasal Screen MRSA/MSSA - Final D/C Instructions Discharge Diet: No restrictions Discharge Activity: May Not Drive May shower in (days): 1 (With back to shower) May resume sexual activity in: 6-8 weeks Ice area for (Minutes): 20 (every hour while awake.) Weight Bearing Status: Weight bearing as tolerated Keep extremity elevated above heart level: Operative Extremity Additional Activity Instructions: Wear elastic stockings for 2 weeks after your surgery. Call your doctor if your incision/area has: Continuous Slow Oozing, Sudden Increased Bleeding, Increased Pain/ Swelling, Increased Redness and Foul Smelling Discharge Call your doctor if you observe: Fever of 101 or Higher, Coldness, Increased Pain, Numbness or Tingling, Change in Color, Calf discomfort and Uncontrolled pain Change Dressing in: do not change dressing (and daily as needed.) Remove Dressing in: 3 days Cleanse incision/area with: Soap & Water and Keep Dressing Clean & Dry Additional Dressing/Incision Instructions: If incision is clean dry and intact may leave the wound open to air and continue showering. If there is continued drainage continue daily dry dressing changes and keep incision clean dry and intact until there is no drainage. Please Follow Up With: Maverick Dash MD When: 09/15/2020 Meaningful Use Info Meaningful Use Diagnoses (Choose all that apply): None applicable Discharge Plan Admission Admit Date/Time: 03/28/22 13:59 Attending Provider: Maverick Dash Primary Care Provider: Ivan Swanson Consulting Providers: Donavan Rivas ; Shivani Camacho Discharge Orders/Prescriptions Prescriptions: New cefazolin in 0.9% sod chloride 2 gram/100 mL solution 100 ml IV Q8H 40 Days Qty: 1200 0RF Rx Instructions: stop date 05/09/22 dx: mssa hip PJI weekly bmp, cbc, LFT, and esr. Fax to [phone] routine picc care per protocol rifampin 300 mg Capsule 300 mg PO BID 40 Days Qty: 80 0RF acetaminophen 500 mg Tablet 1,000 mg PO Q8 Qty: 0 0RF aspirin 81 mg Tablet,Chewable 81 mg PO BIDCM Qty: 0 0RF Chloraseptic Sore Throat 6-10 mg Lozenge 1 janine mucous membrane Q2H PRN PRN (Reason: SORE THROAT) Qty: 0 0RF calcium carbonate 200 mg calcium (500 mg) Tablet,Chewable 1,000 mg PO Q6H PRN PRN (Reason: Indigestion) Qty: 0 0RF Ensure Plus High Protein 0.08 gram-1.5 kcal/mL Liquid 120 ml PO 4X/DAY Qty: 0 0RF famotidine 20 mg Tablet 20 mg PO DAILY 30 Days Qty: 30 0RF meloxicam 7.5 mg Tablet 7.5 mg PO BID 30 Days Qty: 60 1RF oxycodone 5 mg Tablet 5 - 10 mg PO Q4H PRN PRN (Reason: Pain Score 4-10) 5 Days Qty: 42 0RF sennosides-docusate sodium [Stool Softener-Stimulant Laxat] 8.6-50 mg Tablet 2 tab PO BID 3 Days Qty: 12 0RF Continued levothyroxine 100 mcg tablet 100 mcg PO DAILY Qty: 90 1RF Held ibuprofen 600 mg Tablet 600 mg PO Q6H PRN (Reason: Fever) Hold Instructions: Resume on 05/02/22. Discontinued acetaminophen [Tylenol] 325 mg Tablet 650 mg PO Q6H PRN (Reason: PAIN/FEVER) doxycycline hyclate 100 mg Tablet 100 mg PO BID Referrals / Follow Up: Ivan Swanson MD [Primary Care Provider] - Disposition Disposition (needs filled in before D/C Order can be placed): Home Health Service
[2022-04-01] MEDS: Famotidine 20 MG Tablet PO (08:33)
[2022-04-01] MEDS: Aspirin 81 MG TAB.CHEW PO ×2 (08:34→16:50)
[2022-04-01] MEDS: rifAMPin 300 MG Capsule PO ×2 (08:34→20:41)
[2022-04-01] MEDS: Ensure Plus High Protein 120 ML LIQUID PO ×3 (08:36→16:50)
[2022-04-01 09:01] LABS: Bedside Glucose 136 mg/dL (74-106)
--- NOTE | 2022-04-01 09:17 | PN.ORTHO_ITS ---
Subjective Subjective Patient doing well, no acute events overnight. Patient reports some of his head symptoms are improved. Some mild muscular neck pain. Objective Data Objective Data Vital Signs: Vital Signs Temp Pulse Resp BP Pulse Ox O2 Del Method O2 Flow Rate 97.3 F L 73 16 121/60 H 97 Room Air 4 04/01/22 08:45 04/01/22 08:45 04/01/22 08:45 04/01/22 08:45 04/01/22 08:45 04/01/22 08:45 04/01/22 05:21 Oxygen Flow Rate (L/min) 4 Oxygen Delivery Method Room Air Weight: 310 lb 13.628 oz Body Mass Index (BMI) 37.8 Intake & Output: Intake and Output for Last 24 Hours 03/30/22 03/31/22 04/01/22 23:59 23:59 23:59 Intake Total 1150 / 1150 1928.50 / 1928.50 1010 / 1010 Output Total 3600 / 3600 1450 / 1450 2300 / 2300 Balance -2450 / -2450 478.50 / 478.50 -1290 / -1290 Lab / Micro Data Result Diagrams: 03/31/22 06:25 03/30/22 05:38 Labs: Laboratory Results - last 24 hr 04/01/22 08:39: POC Glucose 136 H Micro: Microbiology 03/28/22 13:13 Tissue - Hip Gram Stain - Final 03/28/22 13:13 Tissue - Hip Wound Culture - Final Staphylococcus aureus 03/28/22 13:13 Tissue - Hip Anaerobic Culture - Preliminary No growth in 48 hours. 03/28/22 13:10 Tissue - Hip Gram Stain - Final 03/28/22 13:10 Tissue - Hip Wound Culture - Preliminary Gram positive organism 03/28/22 13:10 Tissue - Hip Anaerobic Culture - Preliminary No growth in 48 hours. 03/28/22 13:19 Tissue - Hip Gram Stain - Final 03/28/22 13:19 Tissue - Hip Wound Culture - Final No growth aerobically. 03/28/22 13:19 Tissue - Hip Anaerobic Culture - Preliminary No growth in 48 hours. 03/28/22 13:08 Tissue - Hip Gram Stain - Final 03/28/22 13:08 Tissue - Hip Wound Culture - Final Staphylococcus aureus 03/28/22 10:18 Swab (Method) Nasal Screen MRSA/MSSA - Final Physical Exam Const alert and oriented x3 Neck No nuchal rigidity Extremity Extremity Narrative: Left lower extremity: Dressing is clean dry and intact Sensations intact to light touch saphenous, sural, superficial peroneal, deep peroneal, and tibial distributions Motors intact EHL, DF, PF calves are soft and supple Assessment & Plan Assessment/Plan (1) Surgical site infection: PLAN: Postop day 4 irrigation debridement left superficial wound drainage, exploration deep surgical site with headliner exchange left hip 1. Continue physical therapy: Weightbearing as tolerated, activity as tolerated. Direct anterior hip precautions. Continue with therapy and OT, patient has been on full course of physical therapy would like to attempt home exercise program at this time. [place] and arranging home health care has been a challenge for IV antibiotics. We will reassess at 2-week visit to determine appropriateness of continued home exercise program versus home therapy. 2. DVT prophylaxis: Aspir 81 milligrams p.o. twice daily 3. Pain control: Continue current regimen Tylenol and oxycodone. Patient notes oxycodone side effects are unwanted states he plans to minimize narcotics moving forward. 4. Leukocytosis: Resolved today. Likely result of response to operative intervention and infection 5. Infection: Superficial culture consistent with MSSA. 2 out of 3 deep cultures now consistent with gram-positive organism and staph aureus. Patient's antibiotic regimen will consist of cefazolin 2 g every 8 hours IV with p.o. rifampin. We have been able to arrange home health care for the patient but will not be able to start until Saturday morning so patient will be discharged tomorrow after his final dose. 6. Elevated BUN and creatinine: Stable stable continue to follow as an outpati ent. Disposition: Plan for discharge today with home health care for IV antibiotics. We will have patient discontinue dressing after 1 week. [facility]: (2) Abnormal glucose: PLAN: Continue postoperative protocol.
--- NOTE | 2022-04-01 10:42 | PN.HOSP_ITS ---
Subjective Subjective Patient seen and examined. He complained of a mild headache. HE denied any shortness of breath, chest pain, palpitations, dizziness, nausea, vomiting or diarrhea. Review of systems is otherwise negative. Objective Data Objective Data Vital Signs: Vital Signs Temp Pulse Resp BP Pulse Ox O2 Del Method O2 Flow Rate 97.3 F L 73 16 121/60 H 97 Room Air 4 04/01/22 08:45 04/01/22 08:45 04/01/22 08:45 04/01/22 08:45 04/01/22 08:45 04/01/22 08:45 04/01/22 05:21 Oxygen Flow Rate (L/min) 4 Oxygen Delivery Method Room Air Weight: 310 lb 13.628 oz Body Mass Index (BMI) 37.8 Intake & Output: Intake and Output for Last 24 Hours 03/30/22 03/31/22 04/01/22 23:59 23:59 23:59 Intake Total 1150 / 1150 1928.50 / 1928.50 1010 / 1010 Output Total 3600 / 3600 1450 / 1450 2300 / 2300 Balance -2450 / -2450 478.50 / 478.50 -1290 / -1290 Lab / Micro Data Result Diagrams: 03/31/22 06:25 03/30/22 05:38 Labs: Laboratory Results - last 24 hr 04/01/22 08:39: POC Glucose 136 H Micro: Microbiology 03/28/22 13:08 Tissue - Hip Gram Stain - Final 03/28/22 13:08 Tissue - Hip Wound Culture - Final Staphylococcus aureus 03/28/22 13:08 Tissue - Hip Anaerobic Culture - Final No anaerobic bacteria isolated. 03/28/22 13:13 Tissue - Hip Gram Stain - Final 03/28/22 13:13 Tissue - Hip Wound Culture - Final Staphylococcus aureus 03/28/22 13:13 Tissue - Hip Anaerobic Culture - Preliminary No growth in 48 hours. 03/28/22 13:10 Tissue - Hip Gram Stain - Final 03/28/22 13:10 Tissue - Hip Wound Culture - Preliminary Gram positive organism 03/28/22 13:10 Tissue - Hip Anaerobic Culture - Preliminary No growth in 48 hours. 03/28/22 13:19 Tissue - Hip Gram Stain - Final 03/28/22 13:19 Tissue - Hip Wound Culture - Final No growth aerobically. 03/28/22 13:19 Tissue - Hip Anaerobic Culture - Preliminary No growth in 48 hours. 03/28/22 10:18 Swab (Method) Nasal Screen MRSA/MSSA - Final Physical Exam Const alert, oriented x3, no apparent distress and healthy appearing General Appearance: cooperative, well kempt and well developed Orientation / Consciousness: awake, oriented to person, oriented to place and oriented to time HEENT normocephalic, head/scalp atraumatic, moist oral mucous membranes and oropharynx normal Head and Scalp: normocephalic Mouth: oral and palatal mucosa normal Eyes PERRL, EOMs intact bilaterally and conjunctivae normal Neck no lymphadenopathy, supple, no JVD, thyroid normal and no carotid bruits General: trachea midline Resp normal respiratory effort, no retractions, no use of accessory muscles and clear to auscultation bilaterally Auscultation: Negative for rales, rhonchi or wheezes Cardio regular rate, regular rhythm, S1 normal heart sound, S2 normal heart sound, no murmurs, no rub and no gallops GI normal to inspection, nondistended, normoactive bowel sounds, soft to palpation, non-tender and non-distended Extremity normal to inspection, full ROM and no clubbing, cyanosis or edema Skin Skin Narrative: intact dressing over left hip, at site of surgery Neuro oriented x3, CN's II-XII intact bilaterally, moves all extremities, no focal motor deficits and no sensory deficits noted Sensorium / Orientation: awake and alert Speech: speech normal Motor Exam: strength 5/5 throughout Psych affect normal Assessment & Plan Assessment/Plan (1) Surgical site infection: PLAN: Plan #Left anterior hip post op wound dehiscence * s/p irrigation and debridement as well as excision of sinus tract, total hip exploration with revision polyethylene exchange and head exchange * wound cultures growing Staph aureus. * managment as per orthopedics * ID on board * on IV vancomycin and cefazolin * to be discharged on IV cefazolin 2gram q8 hours and PO rifampin. * #Hypothyroidism: on synthroid #CKD 3B * stable * will trend and monitor Cr * #Impaired glucose tolerance * blood glucose is 5.8. * will start on metformin. * ISS. Accuchecks ACHS * DVT prophylaxis: as per primary team; on aspirin 81mg bid * Disposition: stable for discharge from hospitalist standpoint. Charges/Coding Visit Charges Inpatient E&M: 46197 Subs Hosp L2
[2022-04-01] MEDS: 0.9% Saline Lock 10 ML Syringe IV ×2 (13:07→21:57)
[2022-04-01] MEDS: Meloxicam 7.5 MG Tablet PO (20:42)
== END 2022-04-01 22:15 | disposition home health service (06) | DRG 908 ==
LOC: MS3 15:00
PROVIDERS: Anesthesiology; Internal Medicine; Internal Medicine Infectious Disease; Admitting Provider Specialist; PCP Internal Medicine; Referring Provider Specialist; Visit Provider Specialist
PROC: 0SJB0ZZ Inspection of Left Hip Joint, Open Approach (ICD-10-PCS; principal; 2022-03-28 12:05)
DX: T81.31XA Disruption of external operation (surgical) wound, not elsewhere classified, initial encounter (principal); T81.40XA Infection following a procedure, unspecified, initial encounter; N18.32 Chronic kidney disease, stage 3b; E03.9 Hypothyroidism, unspecified; E06.3 Autoimmune thyroiditis; Z96.642 Presence of left artificial hip joint; R73.9 Hyperglycemia, unspecified; B95.61 Methicillin susceptible Staphylococcus aureus infection as the cause of diseases classified elsewhere; Y83.8 Other surgical procedures as the cause of abnormal reaction of the patient, or of later complication, without mention of misadventure at the time of the procedure
CPT/HCPCS: 36415; 36569; 73502; 80048; 80076; 80202; 82962; 83036; 83735; 84443; 85027; 87015; 87070; 87075; 87077; 87081; 87102; 87116; 87176; 87186; 87205; 87206; 88305; 88311; 97116; 97162; 97166; 97530; 97535; 99251; C1776; J7040; J7050; J7120; A4216; G0463; J2405